=== PATIENT | male | born 1960 | race Caucasian/White ===

== ENCOUNTER 2016-06-28 10:51 | Emergency (ER) | payer MEDICARE, MEDICAID ==
--- NOTE | ~2016-06-28 | ER ---
PATIENT'S NAME: CHELSEA BILLY [facility] AGE: 55 Y [address] ROOM: [place] [address] LOCATION: ED ADMIT DATE: 06/28/2016 ER/Outpatient Report DISCHARGE DATE: 06/28/2016 FAMILY PHYSICIAN: PHYSICIAN, CADEN ATTENDING PHYSICIAN: Salima Thompson Time of Arrival: 1051 hours. Time of Evaluation: 1110 hours. IDENTIFICATION: A 55-year-old male. CHIEF COMPLAINT: Right hand cool and numb. HISTORY OF PRESENT ILLNESS: The patient is a 55-year-old male, who states that his right hand has been numb and tingling and weak since yesterday. He did have a cast up on his hand 3 weeks ago on the lateral aspect of his hand. No other problems or concerns. He did have shoulder surgery with Dr. Lopez approximately 1 year ago. MEDICAL PROBLEMS: No other medical problems. PRIOR SURGERIES: Bilateral shoulder surgery in September 2015. SOCIAL HISTORY: The patient lives in [place]. Tobacco use 1-1/2 pack per day. He does also chew tobacco occasionally. Alcohol use, socially. Drug use, denies. He is disabled. FAMILY HISTORY: No pertinent family history. REVIEW OF SYSTEMS: All systems reviewed and negative other than what is noted in the HPI. PHYSICAL EXAMINATION: VITAL SIGNS: Height 6 feet and 3 inches, weight 74.3 kg, blood pressure 131/78, pulse 96, respirations 16, temperature 97.2, and saturations 99%. GENERAL: A 55-year-old male in no acute distress. HEENT: Unremarkable. LUNGS: Clear to auscultation. HEART: Regular rate and rhythm. PATIENT'S NAME: CHELSEA BILLY [facility] AGE: 55 Y [address] ROOM: [place] [address] LOCATION: [facility] ADMIT DATE: 06/28/2016 ER/Outpatient Report DISCHARGE DATE: 06/28/2016 FAMILY PHYSICIAN: PHYSICIAN, CADEN ATTENDING PHYSICIAN: Salima Thompson ABDOMEN: Soft, nondistended, and nontender. SKIN: [place], warm, and dry. No bruising or ecchymosis. EXTREMITIES: Motor strength weak with hand grasp on the right hand. He has a good and strong radial pulse. Capillary refill is delayed on the right hand and his hand is extremely cool to touch compared to the left. EMERGENCY DEPARTMENT COURSE: X-ray of his left hand negative for acute fracture or dislocation. I did call Dr. Pantoja, Vascular Surgeon, who came to evaluate the patient. But, by the time Dr. Pantoja came, the patient continued to have normal pulse, was warm to touch, improved sensation, and normal capillary refill. The patient said he was feeling a little bit better, but still had a little bit weak hand grasp on that side. LABS AND X-RAYS: Sodium 136, potassium 4.3, chloride 103, CO2 of 23, BUN 12, creatinine 1.0, and blood sugar 101. Liver enzymes normal. Hemoglobin 15.2, hematocrit 44.2, platelets 272, and white count 9.4 with a normal differential. EKG showed normal sinus rhythm at 79 beats per minute. No acute ST elevation or depression. Doppler of his right upper extremity negative for clot. IMPRESSION AND PLAN: Right upper extremity numbness, weakness, and coolness, which has normalized at this point, other than the weakness is not completely resolved in a glove distribution. There is no weakness anywhere else. He is alert and oriented. Cranial nerves II through XII grossly intact. Motor strength 5/5 throughout elsewhere. Sensation is intact to light touch with the exception of his right hand distally with decreased sensation. Dr. Pantoja evaluated the patient, did not feel there is anything vascular, and recommended consultation with Dr. Carter. Dr. Carter was contacted and the patient will follow up with Dr. Carter in his clinic. The patient is medically stable at this point and things have normalized. He agrees to follow up with Dr. Carter and all questions have been answered at this time. SALIMA THOMPSON MD CAR/modl /[id number] d: 06/28/162030 t: 06/29/16 0800, OUTPATIENT REPORT
--- NOTE | ~2016-06-28 | ENPV ---
Vascular Upper Extremities Veins Procedure Demographics Patient Name CHELSEA BILLY Date of Study 06/28/2016 Patient Number [id number] Gender Male Date of 1960 Age 55 Visit Number [id number] Height Accession Number [id number] Weight Room Number BSA BMI Referring Brandon Guardado MD Physician Physician Physician Ordering Physician Brandon Hendrix MD Public Area Attendant Jig Fitter Aida Junior [facility] Gracie Schultz Conclusions Summary The internal jugular, subclavian, axillary, brachial, radial and ulnar veins as well as the basilic and cephalic veins have been examined. No evidence of deep vein thrombosis or superficial thrombophlebitis in the right upper extremity . Procedure Type of Study: Veins:Upper Extremities Veins, Upper Extremity Right. Indications for Study:Cold sensitivity/discoloration of extremities or digits and Arm swelling. Appropriate Use Criteria:9 Patient Status:STAT. Study Location:ER. Technical Quality:Adequate visualization. - Preliminary reported to:Dr. Taylor's nurse. Velocities are measured in cm/s ; Diameters are measured in cm Right UE Vein Measurements 2D and Doppler Measurements +---------+ + + + + + !Location !Visualized !Compressibility !Thrombosis !Signal !Reflux ! +---------+ + + + + + !IJV !Yes !Yes !None !Pulsatile ! ! +---------+ + + + + + !SCV !Yes !Yes !None !Pulsatile ! ! +---------+ + + + + + !Axillary !Yes !Yes !None ! ! ! +---------+ + + + + + !Brachial !Yes !Yes !None ! ! ! +---------+ + + + + + !Radial !Yes !Yes !None ! ! ! +---------+ + + + + + !Ulnar !Yes !Yes !None ! ! ! +---------+ + + + + + !Basilic !Yes !Yes !None ! ! ! +---------+ + + + + + !Cephalic !Yes !Yes !None ! ! ! +---------+ + + + + + Left UE Vein Measurements 2D and Doppler Measurements +---------+ + + + + + !Location !Visualized !Compressibility !Thrombosis !Signal !Reflux ! +---------+ + + + + + !IJV !Yes !Yes !None !Continuous ! ! +---------+ + + + + + Signature dtt: dtd: 06/28/16 1205 Physician Self Edit
[~2016-06-28 10:51] MED LIST: DILAUDID 4MG4 MG PO; OXYCONTIN EXTEN10 MG PO; PERCOCET 5-3251 EACH PO; VALIUM5 MG PO
[2016-06-28 11:52] LABS: BASOPHIL # 0.1 K/uL (0.0-0.2); BASOPHIL % 1.2 %; EOSINOPHIL % 0.2 %; HEMATOCRIT 44.2 % (37.0-53.0); HEMOGLOBIN 15.2 g/dL (12.0-17.0); IMMATURE GRANULOCYTE % 0.3 %; LYMPHOCYTE # 2.2 K/uL (0.8-4.0); LYMPHOCYTE % 22.9 %; MCH 34.5 pg (27.0-34.0); MCHC 34.4 gm/dL (32.0-36.5); MCV 100.2 fl (83.0-98.0); MONOCYTE # 0.8 K/uL (0.0-1.0); MONOCYTE % 8.9 %; NEUTROPHIL # (ANC) 6.3 K/uL (1.4-9.0); NEUTROPHIL % 66.5 %; NRBC % 0 /100WBC (0-0.00); PLATELET COUNT 272 K/uL (150-450); RBC 4.41 M/uL (4.00-6.00); RDW-CV 13.2 % (11.9-14.6); WBC 9.4 K/uL (4.0-11.0)
[2016-06-28 12:14] LABS: ALBUMIN 4.2 gm/dL (3.5-5.0); ALK PHOS 59 IU/L (33-138); ALT 40 IU/L (12-78); ANION GAP 14.3 (10.0-19.0); AST 39 IU/L (10-40); BLOOD UREA NITROGEN 12 mg/dL (6-24); CALCIUM 9.6 mg/dL (8.5-10.5); CHLORIDE 103 mMol/L (96-110); CO2 23 mMol/L (22-32); ESTIMATED GFR (MDRD EQUATION) > 60; POTASSIUM 4.3 mMol/L (3.7-5.1); SODIUM 136 mMol/L (135-145); TOTAL PROTEIN 8.6 g/dL (6.0-8.4)
[2016-06-28 12:15] LABS: TOTAL BILIRUBIN 1.2 mg/dL (0.0-1.5)
== END 2016-06-28 12:57 | disposition disaster alternative care site (69) ==
LOC: GMED 10:51
PROVIDERS: Family Medicine
DX: R20.0 Anesthesia of skin (principal); M79.89 Other specified soft tissue disorders; R53.1 Weakness; F17.210 Nicotine dependence, cigarettes, uncomplicated; F17.220 Nicotine dependence, chewing tobacco, uncomplicated

== ENCOUNTER 2016-10-21 19:52 | Emergency (ER) | payer MEDICARE, MEDICAID ==
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
[2016-10-21 20:14] LABS: BASOPHIL # 0.1 K/uL (0.0-0.2); BASOPHIL % 1.3 %; EOSINOPHIL # 0.1 K/uL (0.0-0.5); EOSINOPHIL % 1.5 %; HEMOGLOBIN 12.4 g/dL (12.0-17.0); IMMATURE GRANULOCYTE % 0.4 %; LYMPHOCYTE # 3.1 K/uL (0.8-4.0); LYMPHOCYTE % 32.2 %; MCH 34.9 pg (27.0-34.0); MCHC 35.3 gm/dL (32.0-36.5); MCV 98.9 fl (83.0-98.0); MONOCYTE # 0.7 K/uL (0.0-1.0); MONOCYTE % 7.4 %; MPV 9.7 fl (9.4-12.4); NEUTROPHIL # (ANC) 5.4 K/uL (1.4-9.0); NEUTROPHIL % 57.2 %; NRBC % 0 /100WBC (0-0.00); PLATELET COUNT 234 K/uL (150-450); RBC 3.55 M/uL (4.00-6.00); WBC 9.5 K/uL (4.0-11.0)
[2016-10-21 20:16] LABS: HEMATOCRIT 35.1 % (37.0-53.0)
[2016-10-21 20:30] LABS: ALBUMIN 3.7 gm/dL (3.5-5.0); ALK PHOS 63 IU/L (33-138); ALT 28 IU/L (12-78); ANION GAP 11.6 (10.0-19.0); AST 25 IU/L (10-40); BLOOD UREA NITROGEN 14 mg/dL (6-24); CALCIUM 8.5 mg/dL (8.5-10.5); CHLORIDE 109 mMol/L (96-110); CO2 22 mMol/L (22-32); CREATININE 0.8 mg/dL (0.6-1.3); POTASSIUM 3.6 mMol/L (3.7-5.1); SODIUM 139 mMol/L (135-145); TOTAL BILIRUBIN 0.2 mg/dL (0.0-1.5); TOTAL PROTEIN 7.3 g/dL (6.0-8.4)
== END 2016-10-21 21:10 | disposition disaster alternative care site (69) ==
LOC: GMED 19:52 → GACC 19:52 → GMED 21:10
PROVIDERS: Emergency Medicine
DX: F10.129 Alcohol abuse with intoxication, unspecified (principal); Y90.7 Blood alcohol level of 200-239 mg/100 ml; F17.210 Nicotine dependence, cigarettes, uncomplicated; I25.10 Atherosclerotic heart disease of native coronary artery without angina pectoris; E78.5 Hyperlipidemia, unspecified; Z95.828 Presence of other vascular implants and grafts; Z98.890 Other specified postprocedural states
CPT/HCPCS: G0480; J2550